=== PATIENT | male | born 1935 | race Caucasian/White ===

== ENCOUNTER 2025-05-09 10:01 | Day surgery (SDC) | payer MEDICARE ==
[~2025-05-09] VITALS: Ht 167.6 cm; Wt 81.3 kg
[~2025-05-09 10:01] MED LIST: ATOR1TAB19 PO; BISO5TAB14 PO; BLIN0.25 OP; CVS10CAP7 PO; GABA-1635 PO; LIDOCAINE 3.5% 1 ML OPHTH TOPICAL GEL OU ONE; LISI5TAB11 PO
[2025-05-09] MEDS ORDERED: MIDAZOLAM INJ 2 MG/2 ML VIAL As Ordered ONE (14:35)
[2025-05-09] MEDS: TOBRADEX OPHTH OINT 3.5 GM As Ordered ONE (14:59)
[2025-05-09] MEDS: LIDOCAINE 2% W/EPINEPHrine 20 ML VIAL **PRES FREE As Ordered ONE (14:59)
[2025-05-09] MEDS: POVIDONE-IODINE 5% OPHTH PREP SOL 30ML As Ordered ONE (14:59)
[2025-05-09 15:35] VITALS: BP 135/65; TEMP 96.8; O2SAT 97
== END 2025-05-09 15:53 | disposition home or self-care (01) ==
LOC: M SDC 10:01
PROVIDERS: ATTEND Ophthalmology
DX: C44.1122 Basal cell carcinoma of skin of right lower eyelid, including canthus (principal); I10 Essential (primary) hypertension; E78.00 Pure hypercholesterolemia, unspecified; Z79.899 Other long term (current) drug therapy; G50.0 Trigeminal neuralgia
CPT/HCPCS: 11442; 88305; 88331; J2250; J3010